=== PATIENT | male | born 1945 | race Caucasian/White ===

== ENCOUNTER 2016-10-03 09:32 | Day surgery (SDC) | payer MEDICARE ==
[~2016-10-03 09:32] MED LIST: Buffered Lidocaine 1% SYR 3ML* 3 ML/SYR SYRINGE INTRADERM ONE; Dexamethasone IV* 4 MG/ML 1 ML (4 MG) IV SLOW PU ONE; Famotidine IV* 10 MG/ML 2 ML (20 mg) IV ONE
[2016-10-03] MEDS ORDERED: ceFAZolin 2 GM PREMIX (*) 2 GM/50 ML BAG IVPB ONE (09:55)
[2016-10-03] MEDS ORDERED: Famotidine IV* 10 MG/ML 2 ML (20 mg) ONE (09:55)
[2016-10-03] MEDS ORDERED: Dexamethasone IV* 4 MG/ML 1 ML (4 MG) ONE (09:55)
[2016-10-03] MEDS ORDERED: Atracurium* 10 MG/ML 10 ML VIAL ONE (10:30)
[2016-10-03] MEDS ORDERED: Midazolam* 1 MG/ML 5 ML VIAL (5 MG) ONE (10:30)
[2016-10-03] MEDS ORDERED: fentaNYL* 50 MCG/ML 5 ML VIAL (250 MCG VIAL) ONE (10:30)
[2016-10-03] MEDS ORDERED: Ondansetron INJ* 2 MG/ML VIAL ONE (10:31)
[2016-10-03] MEDS ORDERED: Lidocaine 2% PF * 5 ML VIAL ONE (10:31)
[2016-10-03] MEDS ORDERED: Ketorolac INJ* 30 MG/ML 1 ML VIAL ONE (10:31)
[2016-10-03] MEDS ORDERED: Propofol* 10 MG/ML 20 ML BTL IV PUSH ONE (10:31)
[2016-10-03] MEDS ORDERED: Bupivacaine 0.25% EPI 200,000* 30 ML SDV ONE (10:47)
[2016-10-03] MEDS ORDERED: oxyCODONE/Acetamin 5/325 MG* TAB PO PRN (11:36)
[2016-10-03] MEDS ORDERED: fentaNYL* 50 MCG/ML 2 ML VIAL (100 MCG VIAL) IV PRN (11:36)
[2016-10-03] MEDS ORDERED: Ondansetron INJ* 2 MG/ML VIAL IV PRN (11:36)
[2016-10-03] MEDS ORDERED: DiMENhydriNATE IV* 50 MG/ML VIAL IV PUSH PRN (11:36)
[2016-10-03] MEDS ORDERED: HYDROmorphone INJ* 1 MG/ML CARPUJECT SYRINGE IV PRN (11:36)
--- NOTE | 2016-10-03 11:49 | SURGPN ---
Brief Operative Note - Surgery Procedures: Procedures Pre-OP Diagnoses: Left inguinal hernia Post-op Diagnosis: same Procedure: Laparoscopic Left inguinal hernia repair with mesh Surgeon: Rasheeda Asst: Ivy Puckettthereji: YUSRA Tejeda EBL: minimal IVF: 1000cc LR Specimen: none Drains: none
[2016-10-03] MEDS ORDERED: Glycopyrrolate IV* 0.2 MG/ML 1 ML VIAL ONE (12:28)
[2016-10-03 13:01] VITALS: BP 123/88
--- NOTE | 2016-10-04 08:34 | OP ---
DATE OF OPERATION: 10/03/16 [facility] DATE OF : 49 SURGEON: Terrance Vanessa MD. ARCH SUPPORT MAKER: Rosio Haynes NP. ANESTHESIOLOGIST: Mr. Tejeda. ANESTHESIA: General. PRE-OP DIAGNOSIS: Left inguinal hernia. POST-OP DIAGNOSIS: Left inguinal hernia. OPERATIVE PROCEDURE: Laparoscopic left inguinal hernia repair with mesh. ESTIMATED BLOOD LOSS: Minimal. FLUIDS: 1 L of fluid given. SPECIMEN: None. COUNTS: Lap pad count and instrument count correct at the end of the procedure. DESCRIPTION OF PROCEDURE: The patient was identified in the preoperative area, case was discussed with him briefly, consent signed, and the patient was marked , brought to the operating room and placed on the operating room table in a supine position. Preoperative antibiotics were given. Sequential compression devices were placed on bilateral lower extremities. General anesthesia was induced. The patient's abdomen was clipped off hair, prepped and dapped in the standard surgical fashion. Time-out was performed. An infraumbilical incision was made, this was deepened down to the anterior fascia on the left, which was incised and the rectus pillar retracted laterally exposing the preperitoneal plane. The was bluntly dissected with the surgeon's finger and then we placed a blunt 12 mm port into the space. This was then allowed to insufflate to a pressure of 12 mmHg. The patient tolerated the insufflation well. Laparoscope was inserted through this and there was no evidence of injury from the trocar and there was no significant bleeding. Additional blunt dissection was carried out, with the camera right down to the pubic symphysis, and next two 5-mm trocars were placed in the lower midline. Additional blunt dissection was utilized to free up this preperitoneal plane and expose Anthony's ligament on the left and right side. Review of the left side showed a left direct inguinal hernia. This was reduced with gentle traction, exposing the defect at the left direct space. Keeping the epigastric vessels anteriorly, space of Bogros was cleared away. This allowed us to identify the spermatic structures. The peritoneum extending towards these structures were identified, isolated, and gently swept off of the spermatic structures to free up an indirect hernia. A lipoma of the cord was also gently reduced out of the inguinal canal. Next, a large 3D mesh for the left side was opened up. This was placed into the preperitoneal plain, allowed to unfurl and tacked laterally, as well as medially, and then at Anthony's ligament, covering the full left-sided myopectineal orifice. The mesh lay without tension and without wrinkling. The preperitoneal plane was then allowed to collapse. Trocars were removed under direct vision. Anterior fascia at the umbilical port site was reapproximated with an 0-Polysorb suture in a [id number] fashion and all 3 skin incisions were reapproximated with 4-0 Monocryl subcuticular sutures. Steri-strips and sterile dressing were applied. The patient tolerated the procedure well. CC: Dr. Ilya Pace * [id number]/CPS #: [id number]
== END 2016-10-03 13:40 | disposition home or self-care (01) ==
LOC: OR 09:32
PROVIDERS: ATTEND Surgery
DX: K40.90 Unilateral inguinal hernia, without obstruction or gangrene, not specified as recurrent (principal); I48.91 Unspecified atrial fibrillation
CPT/HCPCS: C1781; J0690; J1100; J1885; J2250; J2405; J2704; J3010

== ENCOUNTER 2019-02-15 10:39 | Emergency (ER) | payer MEDICARE ==
[2019-02-15 10:48] VITALS: BP 115/67
--- NOTE | 2019-02-15 11:04 | UC ---
Upper Extremity HPI - HPI Summary HPI Summary: R wrist pain and swelling after having ladder fall on him and then him putting out his hand to brace for fall. He did get a laceration on his forehead from the safety glasses and denies hitting his head. Denies decr. rom of neck or neck pain. He can move R wrist with discomfort. - History of Current Complaint Chief Complaint: UCLaceration Stated Complaint: HEAD LACERATION WRIST INJURY Time Seen by Provider: 02/15/19 10:59 Pain Intensity: 2 Pain Scale Used: 0-10 Numeric Character: Sharp Aggravating Factor(s): Lifting Alleviating Factor(s): Ice Associated Signs And Symptoms: Positive: Swelling. Negative: Redness, Bruising , Numbness/Tingling - Allergies/Home Medications Allergies/Adverse Reactions: Allergies Allergy/AdvReac Type Severity Reaction Status Date / Time No Known Allergies Allergy Verified 02/15/19 10:48 PMH/Surg Hx/FS Hx/Imm Hx Previously Healthy: Yes Cardiovascular History: Cardiac Disease - Surgical History Surgical History: Yes Surgery Procedure, Year, and Place: HERNIA REPAIR 2 YRS AGO - Social History Alcohol Use: Rare Substance Use Type: None Smoking Status (MU): Never Smoked Tobacco Review of Systems All Other Systems Reviewed And Are Negative: Yes Constitutional: Positive: Negative Skin: Positive: Bruising - some on R wrist Respiratory: Positive: Negative Cardiovascular: Positive: Negative Musculoskeletal: Positive: Arthralgia - R wrist, Edema - R wrist. Negative: Decreased ROM Neurological: Negative: Headache, Weakness Physical Exam Triage Information Reviewed: Yes Appearance: Well-Appearing Vital Signs: Initial Vital Signs Temp 97.7 F 02/15/19 10:41 Pulse 52 02/15/19 10:41 Resp 18 02/15/19 10:41 BP 115/67 02/15/19 10:41 Pulse Ox 99 02/15/19 10:41 Vital Signs Reviewed: Yes Neck: Positive: Supple, Nontender. Negative: Nuchal Rigidity Respiratory Exam: Normal Cardiovascular Exam: Normal Cardiovascular: Positive: Brisk Capillary Refill - at R fingers Musculoskeletal: Positive: ROM Limited @ - FROM at R wrist w/ pain, Edema @ - at R wrist, Other: - R elbow and fingers unremarkable. Neurological: Positive: Alert Skin: Positive: Other - healing laceration at forehead, no bruising at forehead. Diagnostics - Radiology No standard instances Radiology Interpretation Completed By: Radiologist Summary of Radiographic Findings: IMPRESSION: NO FRACTURE OF THE WRIST IS NOTED. Upper Extremity Course/Dx - Course Course Of Treatment: R wrist pain after ladder falling onto him that resulted in fall yesterday. He ended up getting a deep scratch from safety glasses on his head and his main concerned was that the swelling in R wrist did not go down. XRAY did not show any fx but on exam there was some point tenderness at wrist. We used brace and recommended nsaids,ice. neurovascularly intact. he declined rx. Vitals good. - Differential Dx/Diagnosis Differential Diagnosis/HQI/PQRI: Fracture (Closed), Strain, Sprain Provider Diagnosis: Right wrist pain Discharge - Sign-Out/Discharge Documenting (check all that apply): Patient Departure All imaging exams completed and their final reports reviewed: Yes - Discharge Plan Condition: Good Disposition: HOME Patient Education Materials: Wrist Injury (ED) Referrals: Ilya Pace MD [Primary Care Provider] - Additional Instructions: If not improving please follow up with pcp - Billing Disposition and Condition Condition: GOOD Disposition: Home - Attestation Statements Provider Attestation: I was available for consult. This patient was seen by the [facility]. The patient was not presented to, seen by, or examined by me. -Suzanna
== END 2019-02-15 12:11 | disposition home or self-care (01) ==
LOC: UCEAST 10:39
DX: M25.531 Pain in right wrist (principal)
CPT/HCPCS: 99212; G0463